=== PATIENT | female | born 1935 | race African-American/Black ===

== ENCOUNTER → 2016-08-27 | Outpatient (CLI) | payer MEDICARE, MEDICAID | END | disposition home or self-care (01) | LOC: NM 08:25 | PROVIDERS: ATTEND Internal Medicine Endocrinology, Diabetes & Metabolism | DX: E21.0 Primary hyperparathyroidism (principal) | CPT/HCPCS: 78070; A9500 ==

== ENCOUNTER 2019-01-31 14:47 | Inpatient (IN) | payer MEDICARE, MEDICAID ==
[~2019-01-31] VITALS: Ht 162.6 cm; Wt 64.9 kg
[2019-01-31] MEDS ORDERED: MORPHINE SULFATE 4 MG/ML CPJ (NOT FOR IM USE) IV STA (15:50)
[2019-01-31 16:04] LABS: HEMATOCRIT. 34.7 % (36.0-48.0); HEMOGLOBIN. 11.5 g/dL (12.0-16.0); MEAN CORPUSCULAR VOLUME 78.5 fL (81.0-99.0); MEAN PLATELET VOLUME 7.6 fl (7.4-10.4); PLATELET 376 x1000/uL (130-400); RED BLOOD CELL COUNT 4.42 mill/uL (4.2-5.4); RED CELL DISTRIBUTION WIDTH 14.6 % (11.6-14.6)
[2019-01-31 16:07] LABS: CHLORIDE 101 mEq/L (98-107)
[2019-01-31 16:10] LABS: INR 1.1; PROTHROMBIN TIME 11.2 sec (9.6-11.0)
[2019-01-31 18:21] LABS: PLATELET ESTIMATE NORMAL
[2019-01-31] MEDS ORDERED: DEXTROSE 50% WATER 50ML SYRINGE IV PRN (21:15)
[2019-01-31 21:30] VITALS: BP 173/83
[2019-01-31] MEDS: HYDROMORPHONE HCL/PF 2MG/ML CPJ IV PRN (21:47)
[2019-01-31] MEDS ORDERED: CHLORHEXIDINE GLUCONATE 4% EXTERNAL USE TOP NR (22:30)
[2019-01-31] MEDS ORDERED: AMLODIPINE 5MG TABLET PO NR (23:45)
[2019-02-01] MEDS: SODIUM CHLORIDE 0.45% 1,000 ML IV SCH ×2 (00:19→15:10)
[2019-02-01] MEDS: BLOOD SUGAR DIAGNOSTIC STRIP TEST SCH ×5 (00:26→21:40)
[2019-02-01] MEDS: INSULIN LISPRO 100 UNITS/ML SUBCUT SCH ×5 (01:09→22:00)
[2019-02-01] MEDS: IPRATROPIUM/ALBUTEROL 0.5-3(2.5)MG/3ML NEB HHN SCH ×5 (05:03→21:04)
[2019-02-01] MEDS: HYDROMORPHONE HCL/PF 2MG/ML CPJ IV PRN ×2 (05:08→11:02)
[2019-02-01 08:00] VITALS: BP 120/61
[2019-02-01] MEDS ORDERED: KCL 20MEQ/100ML PREMIX 100 ML IV ONE (11:30)
[2019-02-01 12:00] VITALS: BP 132/64
[2019-02-01 12:09] LABS: CHLORIDE 103 mEq/L (98-107)
[2019-02-01] MEDS ORDERED: ACETAMINOPHEN 325MG TABLET PO PRN (12:30)
[2019-02-01] MEDS ORDERED: ONDANSETRON HCL 4MG/2ML INJ IV PRN ×2 (12:30→15:30)
[2019-02-01] MEDS ORDERED: HYDROCODONE/ACETAMINOPHEN 5/325MG TABLET PO PRN ×2 (12:30)
[2019-02-01] MEDS ORDERED: MAGNESIUM HYDROXIDE 400MG/5ML 30ML UDC PO PRN (12:30)
[2019-02-01] MEDS ORDERED: NORMAL SALINE 0.9% 10 ML SYR ONE (12:43)
[2019-02-01] MEDS ORDERED: VANCOMYCIN HCL 1 GM/VIAL ONE (12:43)
[2019-02-01] MEDS ORDERED: BACITRACIN 50,000 UNITS/VIAL ONE (12:43)
[2019-02-01] MEDS ORDERED: ROCURONIUM BROMIDE 10MG/ML VIAL 5ML IV ONE ×2 (13:08→13:44)
[2019-02-01] MEDS ORDERED: FENTANYL CITRATE/PF 50MCG/ML 2ML VIAL ONE ×2 (13:08→14:07)
[2019-02-01] MEDS ORDERED: METOCLOPRAMIDE HCL 10MG/2ML VIAL ONE (13:09)
[2019-02-01] MEDS ORDERED: SUCCINYLCHOLINE CHLORIDE 200MG/10ML IV ONE (13:09)
[2019-02-01] MEDS ORDERED: EPHEDRINE SULFATE 50MG/ML VIAL ONE (13:09)
[2019-02-01] MEDS ORDERED: PHENYLEPHRINE HCL 10 MG/ML 1ML (IV VIAL) IV ONE (13:09)
[2019-02-01] MEDS ORDERED: CEFAZOLIN SODIUM 1000MG/VIAL ONE (13:09)
[2019-02-01] MEDS ORDERED: MIDAZOLAM HCL 2 MG/2 ML VIAL ONE (13:09)
[2019-02-01] MEDS ORDERED: SODIUM CHLORIDE 0.9% 10ML VIAL ONE (13:09)
[2019-02-01] MEDS ORDERED: NEOSTIGMINE METHYLSULFATE 1MG/ML 10 ML VIAL ONE (13:09)
[2019-02-01] MEDS ORDERED: LIDOCAINE HCL/PF 1% 10 MG/ML 5ML VIAL ONE (13:09)
[2019-02-01] MEDS ORDERED: PROPOFOL 200MG/20ML VIAL IV ONE (13:09)
[2019-02-01] MEDS ORDERED: GLYCOPYRROLATE 0.2 MG/ML 2ML VIAL ONE (13:09)
[2019-02-01] MEDS ORDERED: MORPHINE SULFATE/PF 1MG/ML 10ML AMP ONE (14:28)
[2019-02-01] MEDS ORDERED: BUPIVACAINE HCL/EPINEPHRINE 0.5%/0.0005 30ML ONE (14:29)
[2019-02-01] MEDS ORDERED: BUPIVACAINE HCL/PF 0.25% (2.5MG/ML) 10ML ONE (14:29)
[2019-02-01] MEDS ORDERED: TRANEXAMIC ACID 1,000 MG in SODIUM CHLORIDE 0.9% 100 ML IV NR (14:30)
[2019-02-01] MEDS ORDERED: SODIUM CHLORIDE 0.9% 1,000 ML IV ONE (15:27)
[2019-02-01] MEDS ORDERED: HYDROMORPHONE HCL/PF 2MG/ML CPJ IV PRN (15:30)
[2019-02-01] MEDS ORDERED: MEPERIDINE HCL/PF 25MG/ML CPJ IV PRN (15:30)
[2019-02-01] MEDS ORDERED: MORPHINE SULFATE 2 MG/ML CPJ (NOT FOR IM USE) IV PRN (15:30)
[2019-02-01] MEDS ORDERED: HYDROMORPHONE PCA 50 ML IV ONE (16:41)
[2019-02-01] MEDS ORDERED: HYDROMORPHONE PCA 10MG/50ML IV PRN (16:54)
[2019-02-01] MEDS ORDERED: ONDANSETRON INJ IV PRN (16:55)
[2019-02-01] MEDS ORDERED: DIPHENHYDRAMINE INJ IV PRN (16:55)
[2019-02-01] MEDS ORDERED: NALOXONE INJ IV PRN (16:55)
[2019-02-01] MEDS: DOCUSATE SODIUM 100MG CAPSULE PO SCH (17:00)
[2019-02-01 20:00] VITALS: BP 138/74
[2019-02-01] MEDS ORDERED: ZOLPIDEM TARTRATE 5MG TABLET PO PRN (21:00)
[2019-02-01] MEDS: CEFAZOLIN 2,000 MG in DEXT 5% WATER 100 ML IV SCH (21:59)
[2019-02-02] VITALS: BP 133/75
[2019-02-02 04:00] VITALS: BP 112/63
[2019-02-02] MEDS: IPRATROPIUM/ALBUTEROL 0.5-3(2.5)MG/3ML NEB HHN SCH ×6 (04:00→21:41)
[2019-02-02] MEDS: CEFAZOLIN 2,000 MG in DEXT 5% WATER 100 ML IV SCH (06:06)
[2019-02-02 06:34] LABS: CHLORIDE 106 mEq/L (98-107)
[2019-02-02 06:39] LABS: HEMATOCRIT. 28.7 % (36.0-48.0); HEMOGLOBIN. 9.3 g/dL (12.0-16.0); MEAN CORPUSCULAR HEMOGLOBIN 25.7 pg (28.0-32.0); MEAN CORPUSCULAR VOLUME 79.1 fL (81.0-99.0); MEAN PLATELET VOLUME 8.1 fl (7.4-10.4); PLATELET 246 x1000/uL (130-400); RED BLOOD CELL COUNT 3.62 mill/uL (4.2-5.4); RED CELL DISTRIBUTION WIDTH 14.6 % (11.6-14.6)
[2019-02-02] MEDS: BLOOD SUGAR DIAGNOSTIC STRIP TEST SCH ×4 (07:46→21:07)
[2019-02-02] MEDS: INSULIN LISPRO 100 UNITS/ML SUBCUT SCH ×4 (07:59→21:18)
[2019-02-02 08:00] VITALS: BP 94/48
[2019-02-02] MEDS: ENOXAPARIN 40MG/0.4ML SYR SUBCUT SCH (08:01)
[2019-02-02] MEDS: DOCUSATE SODIUM 100MG CAPSULE PO SCH ×2 (08:01→16:13)
[2019-02-02 12:00] VITALS: BP 101/42
[2019-02-02 14:20] LABS: PLATELET ESTIMATE NORMAL
[2019-02-02 16:00] VITALS: BP 97/41
[2019-02-02 20:00] VITALS: BP 117/51
[2019-02-03] VITALS: BP 120/53
[2019-02-03] MEDS: SODIUM CHLORIDE 0.45% 1,000 ML IV SCH ×2 (01:17→17:10)
[2019-02-03] MEDS: IPRATROPIUM/ALBUTEROL 0.5-3(2.5)MG/3ML NEB HHN SCH ×6 (01:21→20:45)
[2019-02-03 04:00] VITALS: BP 101/41
[2019-02-03] MEDS: BLOOD SUGAR DIAGNOSTIC STRIP TEST SCH ×4 (06:53→21:00)
[2019-02-03] MEDS: INSULIN LISPRO 100 UNITS/ML SUBCUT SCH ×4 (06:59→23:26)
[2019-02-03 08:00] VITALS: BP 118/65
[2019-02-03] MEDS: DOCUSATE SODIUM 100MG CAPSULE PO SCH ×2 (08:32→18:26)
[2019-02-03] MEDS: ENOXAPARIN 40MG/0.4ML SYR SUBCUT SCH (08:32)
[2019-02-03] MEDS ORDERED: MONT10TA24 PO (10:41)
[2019-02-03] MEDS ORDERED: FLUT9.9S16 BOTHNSTRLS (10:41)
[2019-02-03] MEDS ORDERED: TELM80TA8 PO (10:41)
[2019-02-03] MEDS ORDERED: LINA5TAB PO (10:41)
[2019-02-03] MEDS ORDERED: CINA30 PO (10:41)
[2019-02-03] MEDS ORDERED: AMLO10TA80 PO (10:41)
[2019-02-03] MEDS ORDERED: GLIM4TAB2 PO (10:41)
[2019-02-03] MEDS ORDERED: GABA-529 PO (10:41)
[2019-02-03] MEDS ORDERED: ALBU90AE INH (10:41)
[2019-02-03] MEDS ORDERED: ATOR20TA65 PO (10:41)
[2019-02-03 12:00] VITALS: BP 94/53
[2019-02-03 16:00] VITALS: BP 152/95
[2019-02-03] MEDS ORDERED: DOCUSATE SODIUM 100MG CAPSULE PO SCH (17:00)
[2019-02-03 17:33] LABS: CLARITY URINE CLEAR (CLEAR); COLOR URINE YELLOW (YELLOW); KETONES URINE TRACE (NEGATIVE); LEUKOCYTE ESTERASE URINE NEGATIVE (NEGATIVE); NITRITE URINE NEGATIVE (NEGATIVE); OCCULT BLOOD URINE TRACE (NEGATIVE); PH URINE 5.5 (4.5-8.0); PROTEIN URINE TRACE (NEGATIVE); SPECIFIC GRAVITY URINE 1.018 (1.005-1.030); UROBILINOGEN URINE 0.2 E.U./dL (0.2-1.0)
[2019-02-03 17:47] LABS: *COCAINE SCREEN URINE NEGATIVE (NEGATIVE)
[2019-02-03 17:48] LABS: *AMPHETAMINES SCREEN URINE NEGATIVE (NEGATIVE); *BARBITURATES SCREEN URINE NEGATIVE (NEGATIVE); *BENZODIAZEPINES SCREEN URINE PRESUMTIVE POSITIVE (NEGATIVE); CANNABINOID URINE SCREEN NEGATIVE (NEGATIVE); METHADONE URINE SCREEN NEGATIVE (NEGATIVE); OPIATES URINE SCREEN PRESUMTIVE POSITIVE (NEGATIVE); PHENCYCLIDINE URINE SCREEN NEGATIVE (NEGATIVE)
[2019-02-03] MEDS: CINACALCET HCL 30MG TABLET PO SCH (18:26)
[2019-02-03] MEDS: LACTULOSE 20G/30ML UDC PO SCH ×2 (18:27→22:36)
[2019-02-03 20:00] VITALS: BP 111/54
[2019-02-03] MEDS ORDERED: GABAPENTIN 100MG CAPSULE PO SCH (21:00)
[2019-02-03] MEDS ORDERED: ATORVASTATIN CALCIUM 20MG TABLET PO SCH (21:00)
[2019-02-03] MEDS ORDERED: MONTELUKAST SODIUM 10MG TABLET PO SCH (21:00)
[2019-02-04] VITALS: BP 130/56
[2019-02-04] MEDS: IPRATROPIUM/ALBUTEROL 0.5-3(2.5)MG/3ML NEB HHN SCH ×4 (00:01→13:06)
[2019-02-04 04:00] VITALS: BP 132/56
[2019-02-04] MEDS: BLOOD SUGAR DIAGNOSTIC STRIP TEST SCH ×2 (06:58→12:26)
[2019-02-04] MEDS: INSULIN LISPRO 100 UNITS/ML SUBCUT SCH ×2 (06:58→12:26)
[2019-02-04 07:28] LABS: HEMATOCRIT. 27.1 % (36.0-48.0); HEMOGLOBIN. 8.9 g/dL (12.0-16.0); MEAN CORPUSCULAR HEMOGLOBIN 25.7 pg (28.0-32.0); MEAN CORPUSCULAR VOLUME 78.4 fL (81.0-99.0); MEAN PLATELET VOLUME 8.1 fl (7.4-10.4); PLATELET 316 x1000/uL (130-400); RED BLOOD CELL COUNT 3.46 mill/uL (4.2-5.4); RED CELL DISTRIBUTION WIDTH 14.9 % (11.6-14.6)
[2019-02-04 08:00] VITALS: BP 146/73
[2019-02-04 08:09] LABS: CHLORIDE 105 mEq/L (98-107)
[2019-02-04] MEDS ORDERED: LINAGLIPTIN 5MG TABLET PO SCH (09:00)
[2019-02-04] MEDS ORDERED: POLYETHYLENE GLYCOL 3350 (17GM) 1 DOSE PACK PO SCH (09:00)
[2019-02-04] MEDS ORDERED: AMLODIPINE 10MG TABLET PO SCH (09:00)
[2019-02-04] MEDS: LACTULOSE 20G/30ML UDC PO SCH (09:16)
[2019-02-04] MEDS: ENOXAPARIN 40MG/0.4ML SYR SUBCUT SCH (09:16)
[2019-02-04] MEDS: CINACALCET HCL 30MG TABLET PO SCH (09:17)
[2019-02-04] MEDS: DOCUSATE SODIUM 100MG CAPSULE PO SCH (09:17)
[2019-02-04 12:00] VITALS: BP 135/70
[2019-02-04 13:20] VITALS: BP 146/73
[2019-02-04 14:28] VITALS: BP 140/55
[2019-02-04 20:56] LABS: PLATELET ESTIMATE NORMAL
== END 2019-02-04 15:18 | DRG 470 ==
LOC: ER 15:20 → 6EST 18:16 → EDBEDREQSVC 18:18 → EDBEDREQ 18:18 → EDBEDREQTM 18:18 → ENRESERV 18:46
PROVIDERS: ADMIT Internal Medicine; ATTEND Internal Medicine
PROC: 0SRR019 Replacement of Right Hip Joint, Femoral Surface with Metal Synthetic Substitute, Cemented, Open Approach (ICD-10-PCS; principal; 2019-02-01)
DX: S72.011A Unspecified intracapsular fracture of right femur, initial encounter for closed fracture (principal); M25.00 Hemarthrosis, unspecified joint; M16.11 Unilateral primary osteoarthritis, right hip; M17.11 Unilateral primary osteoarthritis, right knee; J44.9 Chronic obstructive pulmonary disease, unspecified; I10 Essential (primary) hypertension; E78.5 Hyperlipidemia, unspecified; E03.9 Hypothyroidism, unspecified; E11.42 Type 2 diabetes mellitus with diabetic polyneuropathy; R33.9 Retention of urine, unspecified; E21.0 Primary hyperparathyroidism; D72.829 Elevated white blood cell count, unspecified; D64.9 Anemia, unspecified; K59.00 Constipation, unspecified; W18.30XA Fall on same level, unspecified, initial encounter; Z82.49 Family history of ischemic heart disease and other diseases of the circulatory system; Z83.3 Family history of diabetes mellitus; Z79.899 Other long term (current) drug therapy; Q65.89 Other specified congenital deformities of hip; Y93.89 Activity, other specified; Y92.098 Other place in other non-institutional residence as the place of occurrence of the external cause; Y99.8 Other external cause status
CPT/HCPCS: 36415; 71045; 73501; 73502; 73560; 80048; 80305; 81003; 82962; 84484; 86850; 86900; 88305; 88311; 93005; 94640; 97110; 97116; 97162; 97166; 97530; 97535; 99285; J0171; J0330; J0690; J1170; J1650; J1815; J2250; J2270; J2274; J2370; J2405; J2704; J2710; J2765; J3010; J3370; J3480; J3490; J7050; J7060; J7620